=== PATIENT | female | born 1935 | race African-American/Black ===

== ENCOUNTER 2018-07-22 13:07 | Emergency (ER) | payer OTHER ==
[2018-07-22 13:16] VITALS: BP 154/70; PULSE 62; TEMP 98.9; BMI 25.7
--- NOTE | 2018-07-22 14:15 | PDOC ---
History of Present Illness - General Chief Complaint: Injury Stated Complaint: FALL, RT SHOULDER PAIN Time Seen by Provider: 07/22/18 13:28 History Source: Patient Exam Limitations: No Limitations - History of Present Illness Initial Comments: 07/22/18 14:00 82-year-old female presents the emergency room with complaints of right shoulder and right side of her head aching pain for the past 3 days. Patient states was trying to change a light pole when she fell off of the chair landing on her right side. Patient states had no loss of consciousness visual changes nausea, weakness and fall. Patient states took one Aleve with good effect but since pain continues patient decided come to the ER. Patient states is on no anticoagulation therapy. Occurred: reports: yesterday Severity: reports: moderate Pain Location: reports: head, upper extremity Method of Injury: Yes: direct blow, fall Modifying Factors: improves with: None Loss of Consciousness: no loss of consciousness Associated Symptoms (Fall): denies symptoms Past History - Travel Traveled outside of the country in the last 30 days: No Close contact w/someone who was outside of country & ill: No - Past Medical History Allergies/Adverse Reactions: Allergies Allergy/AdvReac Type Severity Reaction Status Date / Time No Known Allergies Allergy Verified 07/22/18 13:15 Home Medications: Ambulatory Orders Amlodipine Besylate [Norvasc -] 10 mg PO DAILY 05/09/14 Atorvastatin Ca [Lipitor -] 40 mg PO HS 05/09/14 Calcium Carbonate [Calcium] 500 mg PO BID 05/09/14 Colchicine [Colcrys -] 0.6 mg PO ASDIR 05/09/14 Labetalol HCl [Normodyne -] 300 mg PO BID 05/09/14 Mv,Calcium,Min/Iron/Folic/Vitk [Essential Woman Tablet] 1 each PO DAILY Pioglitazone HCl [Actos -] 45 mg PO DAILY 05/09/14 metFORMIN HCL [Glucophage -] 850 mg PO BID 05/09/14 Ibuprofen [Motrin] 600 mg PO TID #20 tablet 05/10/14 COPD: No Diabetes: Yes (NIDDM) HTN: Yes Hypercholesterolemia: Yes - Suicide/Smoking/Psychosocial Hx Smoking History: Never smoked Substance Use Type: None Patient Lives Alone: Yes Lives with/in: lives alone Review of Systems - Review of Systems Able to Perform ROS?: Yes Constitutional: No: Symptoms Reported HEENTM: No: Blurred Vision Musculoskeletal: Yes: Joint Pain (right shoulder), Neck Pain (right sided). No : Back Pain Integumentary: No: Symptoms Reported Neurological: No: Headache, Numbness, Weakness, Dizziness Hematologic/Lymphatic: No: Symptoms Reported *Physical Exam - Vital Signs Last Vital Signs Temp Pulse Resp BP Pulse Ox 98.9 F 62 18 154/70 98 07/22/18 13:13 07/22/18 13:13 07/22/18 13:13 07/22/18 13:13 07/22/18 13:13 - Physical Exam General Appearance: Yes: Nourished, Appropriately Dressed. No: Apparent Distress HEENT: positive: EOMI, NANCY Neck: positive: Supple, Decreased range of motion (right rotation), Tender lateral (right trapezius) Respiratory/Chest: positive: Chest Tender, Lungs Clear, Normal Breath Sounds. negative: Respiratory Distress, Accessory Muscle Use Cardiovascular: positive: Regular Rhythm, Regular Rate. negative: Murmur Gastrointestinal/Abdominal: positive: Soft. negative: Tenderness Musculoskeletal: negative: CVA Tenderness, Vertebral Tenderness Extremity: positive: Normal Capillary Refill, Normal Inspection, Tender (right before joint). negative: Normal Range of Motion (unable to perform right arm lateral raise) Integumentary: positive: Normal Color, Warm, Moist. negative: Swelling, Ecchymosis Neurologic: positive: Motor Strength 5/5 (ambulatory) ED Treatment Course - RADIOLOGY Radiology Studies Ordered: Category Date Time Status HEAD CT WITHOUT CONTRAST [CT] Stat CT Scan 07/22/18 13:44 Ordered SHOULDER-RIGHT [RAD] Stat Radiology 07/22/18 13:44 Ordered Medical Decision Making - Medical Decision Making 07/22/18 14:15 CC: fall with rt shoulder pain and right sided head achiness Exam: rt shoulder tenderness and rt trapizius tenderness Plan: head ct and shoulder xray 07/22/18 14:29 X-ray negative for acute findings. Head CT shows no acute bleed or mass, or fracture. No CT evidence of acute infarct. Patient will be discharged home with recommendations to take Tylenol Motrin for discomfort apply ice and rest. *DC/Admit/Observation/Transfer Diagnosis at time of Disposition: Shoulder contusion, Closed head injury - Discharge Dispostion Disposition: HOME Condition at time of disposition: Good - Referrals Referrals: Oriana Webb MD [Primary Care Provider] - - Patient Instructions Printed Discharge Instructions: DI for Closed Head Injury, DI for Shoulder Sprain Additional Instructions: Please take motrin or tylenol for pain as needed. Apply ice to the affected areas for the next 3 days as much as you can tolerate. Rest - Post Discharge Activity
== END 2018-07-22 14:37 | disposition home or self-care (01) ==
LOC: JERFT 13:07
DX: S09.8XXA Other specified injuries of head, initial encounter (principal); S40.011A Contusion of right shoulder, initial encounter; W07.XXXA Fall from chair, initial encounter; Y93.E9 Activity, other interior property and clothing maintenance; Y92.038 Other place in apartment as the place of occurrence of the external cause; Y99.8 Other external cause status; I10 Essential (primary) hypertension; E78.00 Pure hypercholesterolemia, unspecified; E11.9 Type 2 diabetes mellitus without complications; Z79.84 Long term (current) use of oral hypoglycemic drugs
CPT/HCPCS: 70450-TC; 73030-TC-RT-FY; 99281-25

== ENCOUNTER 2022-07-10 15:47 | Inpatient (IN) | payer OTHER ==
[2022-07-10] MEDS ORDERED: TRIMETHOBENZAMIDE HCL 200MG/2ML INJ IM ONE ×2 (16:33→16:55)
[2022-07-10 17:29] LABS: BASO % 0.5 % (0-2.0); EOS % 0.9 % (0-4.5); HEMATOCRIT 28.3 % (32.4-45.2); HEMOGLOBIN 9.2 GM/dL (10.7-15.3); LYMPH % 18.4 % (8-40); MCH 29.6 pg (25.7-33.7); MCHC 32.6 g/dl (32.0-36.0); MEAN CELL VOLUME 90.7 fl (80-96); MEAN PLT VOLUME 9.9 fl (7.5-11.1); MONO % 9.7 % (3.8-10.2); NEUT % 70.5 % (42.8-82.8); PLATELET COUNT 99 10^3/uL (134-434); RBC 3.12 M/mm3 (3.60-5.2); RDW 16.6 % (11.6-15.6); WHITE BLOOD COUNT 6.1 K/mm3 (4.0-10.0)
[2022-07-10 17:37] LABS: INR 1.08 (0.83-1.09); PROTHROMBIN TIME (PATIENT) 12.4 SEC (9.7-13.0)
[2022-07-10 17:39] LABS: ACTIVATED PTT 52.3 SECONDS (25.2-36.5)
[2022-07-10 17:47] LABS: CHLORIDE 105 mmol/L (98-107); SODIUM 133 mmol/L (136-145)
[2022-07-10 17:48] LABS: CALCIUM 8.4 mg/dL (8.5-10.1)
[2022-07-10 17:49] LABS: ALBUMIN 3.2 g/dl (3.4-5.0); CO2 17 mmol/L (21-32); GLUCOSE,RANDOM 203 mg/dL (74-106); MAGNESIUM 1.5 mg/dL (1.8-2.4)
[2022-07-10 17:52] LABS: CREATININE 3.3 mg/dL (0.55-1.3); SGOT/AST 88 U/L (15-37); SGPT/ALT 120 U/L (13-61)
[2022-07-10 17:54] LABS: BILIRUBIN,TOTAL 0.5 mg/dL (0.2-1); TOT PROT 6.7 g/dl (6.4-8.2)
[2022-07-10 17:55] LABS: ALK PHOS 60 U/L (45-117)
[2022-07-10 18:04] LABS: ANION GAP 11 MMOL/L (8-16)
[2022-07-10] MEDS ORDERED: CALCIUM GLUCONATE 10% - 1,000 MG/10 ML VIAL IVPB ONE (18:05)
[2022-07-10] MEDS ORDERED: SODIUM CHLORIDE 0.9% 500 ML INFUS.BAG IV ONE (18:08)
[2022-07-10] MEDS ORDERED: CALCIUM GLUCONATE 10% - 1,000 MG/10 ML VIAL ONE (18:32)
[2022-07-10] MEDS ORDERED: MAGNESIUM SULF 50% (8.12 MEQ/2 ML-1 GM VIAL) IVPB ONE (19:07)
[2022-07-10 19:25] LABS: VENOUS BASE EXCESS -8.3 mmol/L (-2-2); VENOUS O2 SATURATION 44.9 % (70-80); VENOUS PH 7.257 (7.310-7.410)
[2022-07-10 19:26] LABS: CHLORIDE 105 mmol/L (98-107); SODIUM 134 mmol/L (136-145)
[2022-07-10 19:28] LABS: BLOOD UREA NITROGEN 52.7 mg/dL (7-18); CALCIUM 8.6 mg/dL (8.5-10.1); CO2 19 mmol/L (21-32); GLUCOSE,RANDOM 177 mg/dL (74-106)
[2022-07-10] MEDS ORDERED: SODIUM BICARBONATE 8.4% 50 MEQ/50 ML DISP.SYRIN IVPUSH ONE (19:28)
[2022-07-10] MEDS ORDERED: SODIUM BICARBONATE 8.4% - 50 ML ONE (19:30)
[2022-07-10] MEDS ORDERED: MAGNESIUM SULFATE IN WATER 2 GM/50 ML IVPB IVPB ONE (19:30)
[2022-07-10] MEDS ORDERED: ALBUTEROL SO4 0.083% IH SOL 2.5 MG/3 ML VIAL.NEB. NEB ONE ×5 (19:30→19:47)
[2022-07-10 19:31] LABS: CREATININE 3.4 mg/dL (0.55-1.3)
[2022-07-10 19:32] LABS: ANION GAP 10 MMOL/L (8-16)
[2022-07-10] MEDS ORDERED: INSULIN REGULAR HUMAN 100 UNITS/ML *VIAL IVPUSH ONE (19:44)
[2022-07-10] MEDS ORDERED: DEXTROSE 50%-WATER - 25 GM/50 ML VIAL IVPUSH ONE (19:45)
[2022-07-10] MEDS ORDERED: ONDANSETRON 4 MG/2 ML VIAL ONE (19:52)
[2022-07-10] MEDS ORDERED: DEXTROSE 50%-WATER 25 GM/50 ML DISP.SYRIN ONE (20:07)
[2022-07-10] MEDS ORDERED: ATROPINE SULFATE 1 MG/10 ML DISP.SYRIN ONE (20:13)
[2022-07-10] MEDS ORDERED: FUROSEMIDE 40 MG/4 ML INJECTABLE VIAL IVPUSH ONE (22:13)
[2022-07-10] MEDS ORDERED: FUROSEMIDE 40 MG/4 ML INJECTABLE VIAL ONE (22:31)
[2022-07-10] MEDS ORDERED: SODIUM ZIRCONIUM CYCLOSILICATE (LOKELMA) 5 GM PACKET PO STA (23:12)
[2022-07-11 07:39] LABS: BASO % 0.6 % (0-2.0); EOS % 1.4 % (0-4.5); HEMATOCRIT 30.3 % (32.4-45.2); LYMPH % 19.6 % (8-40); MCH 29.5 pg (25.7-33.7); MCHC 32.9 g/dl (32.0-36.0); MEAN CELL VOLUME 89.7 fl (80-96); MEAN PLT VOLUME 10.1 fl (7.5-11.1); NEUT % 67.4 % (42.8-82.8); PLATELET COUNT 108 10^3/uL (134-434); RBC 3.38 M/mm3 (3.60-5.2); RDW 16.7 % (11.6-15.6); WHITE BLOOD COUNT 5.9 K/mm3 (4.0-10.0)
[2022-07-11 07:44] LABS: BLOOD UREA NITROGEN 45.7 mg/dL (7-18); CALCIUM 8.8 mg/dL (8.5-10.1)
[2022-07-11 07:47] LABS: CREATININE 2.8 mg/dL (0.55-1.3)
[2022-07-11] MEDS: MUPIROCIN 2% TOPICAL OINTMENT FOR DECOLONIZATION NS SCH ×2 (10:04→21:34)
[2022-07-11] MEDS: amLODIPine BESYLATE 10 MG TABLET (FP) PO SCH (14:10)
[2022-07-11] MEDS: CHLORHEXIDINE GLUCONATE 4% CLEANSER FOR DECOLONIZATION TP SCH (21:34)
[2022-07-11] MEDS: LABETALOL HCL 100 MG TABLET (FP) PO SCH (21:35)
[2022-07-11] MEDS: ATORVASTATIN CA 40 MG TABLET (FP) PO SCH (21:35)
[2022-07-12] MEDS: PIOGLITAZONE HCL 15 MG TABLET PO SCH (06:54)
[2022-07-12 07:33] LABS: HEMATOCRIT 28.5 % (32.4-45.2); HEMOGLOBIN 9.4 GM/dL (10.7-15.3); MCH 29.7 pg (25.7-33.7); MCHC 32.9 g/dl (32.0-36.0); MEAN CELL VOLUME 90.2 fl (80-96); MEAN PLT VOLUME 9.7 fl (7.5-11.1); PLATELET COUNT 101 10^3/uL (134-434); RBC 3.16 M/mm3 (3.60-5.2); RDW 16.4 % (11.6-15.6); WHITE BLOOD COUNT 5.1 K/mm3 (4.0-10.0)
[2022-07-12 07:58] LABS: BLOOD UREA NITROGEN 46.7 mg/dL (7-18); MAGNESIUM 1.9 mg/dL (1.8-2.4)
[2022-07-12 08:01] LABS: CREATININE 2.3 mg/dL (0.55-1.3); PHOSPHOROUS 3.8 mg/dL (2.5-4.9)
[2022-07-12] MEDS ORDERED: SODIUM ZIRCONIUM CYCLOSILICATE (LOKELMA) 5 GM PACKET PO SCH (10:00)
[2022-07-12] MEDS: LABETALOL HCL 100 MG TABLET (FP) PO SCH (11:02)
[2022-07-12] MEDS: amLODIPine BESYLATE 10 MG TABLET (FP) PO SCH (11:03)
[2022-07-12] MEDS: MUPIROCIN 2% TOPICAL OINTMENT FOR DECOLONIZATION NS SCH ×2 (11:03→21:03)
[2022-07-12 13:18] LABS: LACTIC ACID 2.1 mmol/L (0.4-2.0)
[2022-07-12] MEDS ORDERED: hydrALAZINE HCL 20 MG/ML VIAL IVPUSH PRN (13:20)
[2022-07-12] MEDS ORDERED: hydrALAZINE HCL 25 MG TABLET (FP) PO SCH (13:30)
[2022-07-12] MEDS: SODIUM CHLORIDE 0.45% 1,000 ML IV SCH (14:00)
[2022-07-12] MEDS ORDERED: CALCIUM GLUCONATE 10% - 1,000 MG/10 ML VIAL IVPUSH ONE (14:03)
[2022-07-12] MEDS ORDERED: ALBUTEROL SO4 HFA INHALER IH ONE (14:03)
[2022-07-12] MEDS ORDERED: DEXTROSE 50%-WATER - 25 GM/50 ML VIAL IVPUSH ONE (14:04)
[2022-07-12] MEDS ORDERED: INSULIN REGULAR HUMAN 100 UNITS/ML *VIAL ONE (14:06)
[2022-07-12] MEDS ORDERED: SODIUM BICARBONATE 8.4% 50 MEQ/50 ML VIAL IVPUSH ONE (14:08)
[2022-07-12] MEDS ORDERED: DEXTROSE 50%-WATER 25 GM/50 ML DISP.SYRIN ONE (14:11)
[2022-07-12] MEDS: SODIUM ZIRCONIUM CYCLOSILICATE (LOKELMA) 5 GM PACKET PO SCH ×2 (14:20→21:03)
[2022-07-12] MEDS ORDERED: INSULIN REGULAR HUMAN 100 UNITS/ML *VIAL IVPUSH ONE (14:30)
[2022-07-12] MEDS ORDERED: SODIUM BICARBONATE 8.4% - 50 ML ONE (14:40)
[2022-07-12 15:12] LABS: CALCIUM 8.1 mg/dL (8.5-10.1)
[2022-07-12 15:13] LABS: ALBUMIN 3.1 g/dl (3.4-5.0); BLOOD UREA NITROGEN 40.1 mg/dL (7-18)
[2022-07-12] MEDS ORDERED: LACTULOSE 20 GM/30 ML UDC (FOR ORAL USE ONLY) PO ONE (15:14)
[2022-07-12 15:16] LABS: CREATININE 2.3 mg/dL (0.55-1.3)
[2022-07-12 15:18] LABS: BILIRUBIN,TOTAL 0.5 mg/dL (0.2-1); TOT PROT 6.7 g/dl (6.4-8.2)
[2022-07-12] MEDS: ATORVASTATIN CA 40 MG TABLET (FP) PO SCH (21:03)
[2022-07-12] MEDS: HEPARIN NA (PORCINE) 5,000 UNITS/ML 1ML VIAL SQ SCH (21:03)
[2022-07-12] MEDS: CHLORHEXIDINE GLUCONATE 4% CLEANSER FOR DECOLONIZATION TP SCH (21:03)
[2022-07-13] MEDS: PIOGLITAZONE HCL 15 MG TABLET PO SCH (06:38)
[2022-07-13] MEDS: SODIUM CHLORIDE 0.45% 1,000 ML IV SCH ×2 (07:00→19:15)
[2022-07-13 07:30] LABS: HEMATOCRIT 32.9 % (32.4-45.2); HEMOGLOBIN 10.8 GM/dL (10.7-15.3); MCH 29.6 pg (25.7-33.7); MCHC 32.8 g/dl (32.0-36.0); MEAN CELL VOLUME 90.4 fl (80-96); MEAN PLT VOLUME 10.1 fl (7.5-11.1); PLATELET COUNT 105 10^3/uL (134-434); RBC 3.63 M/mm3 (3.60-5.2); RDW 16.8 % (11.6-15.6); WHITE BLOOD COUNT 6.4 K/mm3 (4.0-10.0)
[2022-07-13 07:37] LABS: ALBUMIN 3.3 g/dl (3.4-5.0); BLOOD UREA NITROGEN 30.8 mg/dL (7-18); MAGNESIUM 1.5 mg/dL (1.8-2.4)
[2022-07-13 07:40] LABS: CREATININE 1.8 mg/dL (0.55-1.3); PHOSPHOROUS 3.4 mg/dL (2.5-4.9)
[2022-07-13 07:41] LABS: BILIRUBIN,TOTAL 0.5 mg/dL (0.2-1)
[2022-07-13 07:42] LABS: TOT PROT 7.1 g/dl (6.4-8.2)
[2022-07-13] MEDS: HEPARIN NA (PORCINE) 5,000 UNITS/ML 1ML VIAL SQ SCH ×2 (09:27→22:35)
[2022-07-13] MEDS: SODIUM ZIRCONIUM CYCLOSILICATE (LOKELMA) 5 GM PACKET PO SCH ×2 (09:27→22:36)
[2022-07-13] MEDS: amLODIPine BESYLATE 10 MG TABLET (FP) PO SCH (09:27)
[2022-07-13] MEDS: MUPIROCIN 2% TOPICAL OINTMENT FOR DECOLONIZATION NS SCH ×2 (09:28→22:35)
[2022-07-13] MEDS: hydrALAZINE HCL 25 MG TABLET (FP) PO SCH ×2 (11:47→13:40)
[2022-07-13] MEDS ORDERED: hydrALAZINE HCL 25 MG TABLET (FP) PO ONE (14:48)
[2022-07-13] MEDS: hydrALAZINE HCL 50 MG TABLET (FP) PO SCH ×2 (17:18→22:35)
[2022-07-13] MEDS: ACETAMINOPHEN 500 MG TABLET (FP) PO PRN (18:40)
[2022-07-13] MEDS: CHLORHEXIDINE GLUCONATE 4% CLEANSER FOR DECOLONIZATION TP SCH (22:35)
[2022-07-13] MEDS: ATORVASTATIN CA 40 MG TABLET (FP) PO SCH (22:36)
[2022-07-14] MEDS: PIOGLITAZONE HCL 15 MG TABLET PO SCH (06:11)
[2022-07-14] MEDS: hydrALAZINE HCL 50 MG TABLET (FP) PO SCH (06:11)
[2022-07-14] MEDS: HEPARIN NA (PORCINE) 5,000 UNITS/ML 1ML VIAL SQ SCH ×3 (06:11→21:54)
[2022-07-14 06:59] LABS: BASO % 1.1 % (0-2.0); EOS % 0.9 % (0-4.5); HEMATOCRIT 31.9 % (32.4-45.2); HEMOGLOBIN 10.5 GM/dL (10.7-15.3); LYMPH % 14.9 % (8-40); MCH 29.3 pg (25.7-33.7); MCHC 32.7 g/dl (32.0-36.0); MEAN CELL VOLUME 89.5 fl (80-96); MEAN PLT VOLUME 9.6 fl (7.5-11.1); MONO % 11.4 % (3.8-10.2); NEUT % 71.7 % (42.8-82.8); PLATELET COUNT 129 10^3/uL (134-434); RBC 3.57 M/mm3 (3.60-5.2); WHITE BLOOD COUNT 6.6 K/mm3 (4.0-10.0)
[2022-07-14 07:30] LABS: CALCIUM 8.3 mg/dL (8.5-10.1)
[2022-07-14 07:31] LABS: BLOOD UREA NITROGEN 22.8 mg/dL (7-18); MAGNESIUM 1.5 mg/dL (1.8-2.4)
[2022-07-14 07:34] LABS: CREATININE 1.5 mg/dL (0.55-1.3); PHOSPHOROUS 3.1 mg/dL (2.5-4.9)
[2022-07-14 07:35] LABS: TOT PROT 6.8 g/dl (6.4-8.2)
[2022-07-14 07:36] LABS: BILIRUBIN,TOTAL 0.6 mg/dL (0.2-1)
[2022-07-14] MEDS ORDERED: MAGNESIUM SULF 50% (8.12 MEQ/2 ML-1 GM VIAL) IVPB ONE (07:55)
[2022-07-14] MEDS: ACETAMINOPHEN 500 MG TABLET (FP) PO PRN ×2 (09:27→21:54)
[2022-07-14] MEDS: MUPIROCIN 2% TOPICAL OINTMENT FOR DECOLONIZATION NS SCH ×2 (09:28→21:53)
[2022-07-14] MEDS ORDERED: amLODIPine BESYLATE 10 MG TABLET (FP) PO SCH (10:00)
[2022-07-14] MEDS ORDERED: PIPERACILLIN/TAZOB 3.375 GM 3.375 GM in DEXTROSE 5%-WATER - 50 ML IVPB SCH ×2 (10:15→10:30)
[2022-07-14] MEDS: SODIUM CHLORIDE 0.45% 1,000 ML IV SCH (10:19)
[2022-07-14] MEDS ORDERED: COLCHICINE 0.6 MG CAP PO ONE (14:40)
[2022-07-14] MEDS: LOSARTAN POTASSIUM 25 MG TABLET PO SCH (15:29)
[2022-07-14] MEDS: INSULIN SLIDING SCALE (NOVOLOG) 1 VIAL SQ SCH ×2 (16:57→21:54)
[2022-07-14] MEDS: ALLOPURINOL 100 MG TABLET (FP) PO SCH (16:57)
[2022-07-14] MEDS: CHLORHEXIDINE GLUCONATE 4% CLEANSER FOR DECOLONIZATION TP SCH (21:54)
[2022-07-14] MEDS: ATORVASTATIN CA 40 MG TABLET (FP) PO SCH (21:54)
[2022-07-14] MEDS ORDERED: LABETALOL HCL 100 MG TABLET (FP) PO SCH (22:00)
[2022-07-15 07:29] LABS: BASO % 0.6 % (0-2.0); EOS % 0.7 % (0-4.5); HEMATOCRIT 29.9 % (32.4-45.2); HEMOGLOBIN 9.8 GM/dL (10.7-15.3); LYMPH % 16.7 % (8-40); MCH 29.2 pg (25.7-33.7); MCHC 32.8 g/dl (32.0-36.0); MEAN CELL VOLUME 88.9 fl (80-96); MEAN PLT VOLUME 10.2 fl (7.5-11.1); MONO % 15.6 % (3.8-10.2); NEUT % 66.4 % (42.8-82.8); PLATELET COUNT 124 10^3/uL (134-434); RBC 3.37 M/mm3 (3.60-5.2); RDW 15.9 % (11.6-15.6); WHITE BLOOD COUNT 7.1 K/mm3 (4.0-10.0)
[2022-07-15 07:59] LABS: ALBUMIN 2.8 g/dl (3.4-5.0); BLOOD UREA NITROGEN 28.4 mg/dL (7-18); CALCIUM 8.3 mg/dL (8.5-10.1)
[2022-07-15 08:01] LABS: CREATININE 1.8 mg/dL (0.55-1.3); PHOSPHOROUS 3.7 mg/dL (2.5-4.9)
[2022-07-15 08:03] LABS: BILIRUBIN,TOTAL 0.7 mg/dL (0.2-1); TOT PROT 6.4 g/dl (6.4-8.2)
[2022-07-15] MEDS: PIOGLITAZONE HCL 15 MG TABLET PO SCH (08:16)
[2022-07-15] MEDS: INSULIN SLIDING SCALE (NOVOLOG) 1 VIAL SQ SCH ×4 (08:16→21:19)
[2022-07-15] MEDS: HEPARIN NA (PORCINE) 5,000 UNITS/ML 1ML VIAL SQ SCH ×3 (08:16→21:13)
[2022-07-15] MEDS: MUPIROCIN 2% TOPICAL OINTMENT FOR DECOLONIZATION NS SCH ×2 (10:20→21:14)
[2022-07-15] MEDS: NIFEdipine E.R 60 MG TABLET PO SCH (10:23)
[2022-07-15] MEDS: LOSARTAN POTASSIUM 25 MG TABLET PO SCH (10:23)
[2022-07-15] MEDS: ALLOPURINOL 100 MG TABLET (FP) PO SCH (10:23)
[2022-07-15] MEDS: SODIUM CHLORIDE 0.45% 1,000 ML IV SCH ×2 (10:24→21:12)
[2022-07-15] MEDS: ACETAMINOPHEN 500 MG TABLET (FP) PO PRN ×2 (10:46→21:18)
[2022-07-15 16:01] VITALS: BMI 28.1
[2022-07-15] MEDS: ATORVASTATIN CA 40 MG TABLET (FP) PO SCH (21:13)
[2022-07-15] MEDS: CHLORHEXIDINE GLUCONATE 4% CLEANSER FOR DECOLONIZATION TP SCH (21:14)
[2022-07-16] MEDS: HEPARIN NA (PORCINE) 5,000 UNITS/ML 1ML VIAL SQ SCH ×3 (05:40→22:27)
[2022-07-16] MEDS: INSULIN SLIDING SCALE (NOVOLOG) 1 VIAL SQ SCH ×4 (06:14→22:27)
[2022-07-16] MEDS: PIOGLITAZONE HCL 15 MG TABLET PO SCH (06:14)
[2022-07-16 07:54] LABS: BASO % 0.5 % (0-2.0); EOS % 1.6 % (0-4.5); HEMATOCRIT 28.6 % (32.4-45.2); HEMOGLOBIN 9.4 GM/dL (10.7-15.3); MCH 29.2 pg (25.7-33.7); MCHC 32.9 g/dl (32.0-36.0); MEAN CELL VOLUME 88.7 fl (80-96); MEAN PLT VOLUME 10.1 fl (7.5-11.1); MONO % 13.6 % (3.8-10.2); NEUT % 61.3 % (42.8-82.8); PLATELET COUNT 142 10^3/uL (134-434); RBC 3.22 M/mm3 (3.60-5.2); RDW 15.5 % (11.6-15.6); WHITE BLOOD COUNT 6.4 K/mm3 (4.0-10.0)
[2022-07-16 08:24] LABS: ALBUMIN 2.6 g/dl (3.4-5.0)
[2022-07-16 08:25] LABS: BLOOD UREA NITROGEN 35.9 mg/dL (7-18); MAGNESIUM 2.2 mg/dL (1.8-2.4)
[2022-07-16 08:28] LABS: BILIRUBIN,TOTAL 0.5 mg/dL (0.2-1); CREATININE 1.9 mg/dL (0.55-1.3); PHOSPHOROUS 3.6 mg/dL (2.5-4.9); TOT PROT 6.3 g/dl (6.4-8.2)
[2022-07-16] MEDS: ACETAMINOPHEN 500 MG TABLET (FP) PO PRN ×2 (09:46→22:28)
[2022-07-16] MEDS: ALLOPURINOL 100 MG TABLET (FP) PO SCH (09:47)
[2022-07-16] MEDS: NIFEdipine E.R 60 MG TABLET PO SCH (09:47)
[2022-07-16] MEDS: predniSONE 20 MG TABLET (UD) PO SCH (15:08)
[2022-07-16] MEDS: ATORVASTATIN CA 40 MG TABLET (FP) PO SCH (22:27)
[2022-07-16] MEDS: CHLORHEXIDINE GLUCONATE 4% CLEANSER FOR DECOLONIZATION TP SCH (22:27)
[2022-07-16] MEDS: SODIUM CHLORIDE 0.45% 1,000 ML IV SCH (23:53)
[2022-07-17] MEDS: HEPARIN NA (PORCINE) 5,000 UNITS/ML 1ML VIAL SQ SCH ×3 (05:31→21:06)
[2022-07-17] MEDS: PIOGLITAZONE HCL 15 MG TABLET PO SCH (06:20)
[2022-07-17] MEDS: INSULIN SLIDING SCALE (NOVOLOG) 1 VIAL SQ SCH ×4 (06:30→21:07)
[2022-07-17 07:04] LABS: BASO % 1.6 % (0-2.0); HEMATOCRIT 29.7 % (32.4-45.2); HEMOGLOBIN 9.6 GM/dL (10.7-15.3); LYMPH % 9.1 % (8-40); MCH 28.7 pg (25.7-33.7); MCHC 32.2 g/dl (32.0-36.0); MEAN CELL VOLUME 89.3 fl (80-96); MEAN PLT VOLUME 9.7 fl (7.5-11.1); MONO % 7.6 % (3.8-10.2); NEUT % 81.7 % (42.8-82.8); PLATELET COUNT 179 10^3/uL (134-434); RBC 3.33 M/mm3 (3.60-5.2); RDW 15.6 % (11.6-15.6); WHITE BLOOD COUNT 7.4 K/mm3 (4.0-10.0)
[2022-07-17 07:22] LABS: ALBUMIN 2.7 g/dl (3.4-5.0); CALCIUM 8.7 mg/dL (8.5-10.1)
[2022-07-17 07:23] LABS: MAGNESIUM 2.1 mg/dL (1.8-2.4)
[2022-07-17 07:26] LABS: CREATININE 1.9 mg/dL (0.55-1.3); PHOSPHOROUS 3.1 mg/dL (2.5-4.9)
[2022-07-17 07:27] LABS: BILIRUBIN,TOTAL 0.3 mg/dL (0.2-1); TOT PROT 6.9 g/dl (6.4-8.2)
[2022-07-17] MEDS: predniSONE 20 MG TABLET (UD) PO SCH (09:13)
[2022-07-17] MEDS: ALLOPURINOL 100 MG TABLET (FP) PO SCH (09:13)
[2022-07-17] MEDS: NIFEdipine E.R 60 MG TABLET PO SCH (09:13)
[2022-07-17] MEDS ORDERED: LOSARTAN POTASSIUM 50 MG TABLET PO SCH (11:30)
[2022-07-17] MEDS: CHLORHEXIDINE GLUCONATE 4% CLEANSER FOR DECOLONIZATION TP SCH (21:06)
[2022-07-17] MEDS: ATORVASTATIN CA 40 MG TABLET (FP) PO SCH (21:06)
[2022-07-18] MEDS ORDERED: ACETAMINOPHEN 500 MG TABLET (FP) PO PRN (03:39)
[2022-07-18] MEDS: HEPARIN NA (PORCINE) 5,000 UNITS/ML 1ML VIAL SQ SCH ×3 (05:24→21:44)
[2022-07-18] MEDS: INSULIN SLIDING SCALE (NOVOLOG) 1 VIAL SQ SCH ×4 (06:01→21:44)
[2022-07-18] MEDS: PIOGLITAZONE PO SCH (06:56)
[2022-07-18] MEDS ORDERED: PIOGLITAZONE HCL 15 MG TABLET PO SCH (07:00)
[2022-07-18 10:47] LABS: BASO % 1.6 % (0-2.0); EOS % 1.1 % (0-4.5); HEMATOCRIT 28.4 % (32.4-45.2); HEMOGLOBIN 9.3 GM/dL (10.7-15.3); LYMPH % 17.6 % (8-40); MCH 29.1 pg (25.7-33.7); MCHC 32.9 g/dl (32.0-36.0); MEAN CELL VOLUME 88.5 fl (80-96); MEAN PLT VOLUME 9.4 fl (7.5-11.1); MONO % 9.8 % (3.8-10.2); NEUT % 69.9 % (42.8-82.8); PLATELET COUNT 223 10^3/uL (134-434); RBC 3.21 M/mm3 (3.60-5.2); RDW 15.4 % (11.6-15.6); WHITE BLOOD COUNT 8.5 K/mm3 (4.0-10.0)
[2022-07-18] MEDS: predniSONE 20 MG TABLET (UD) PO SCH (11:00)
[2022-07-18] MEDS: ALLOPURINOL 100 MG TABLET (FP) PO SCH (11:00)
[2022-07-18] MEDS: NIFEdipine E.R 60 MG TABLET PO SCH (11:01)
[2022-07-18] MEDS: LOSARTAN POTASSIUM 25 MG TABLET PO SCH (11:01)
[2022-07-18 11:19] LABS: ALBUMIN 2.7 g/dl (3.4-5.0); CALCIUM 8.5 mg/dL (8.5-10.1)
[2022-07-18 11:20] LABS: BLOOD UREA NITROGEN 38.2 mg/dL (7-18)
[2022-07-18 11:22] LABS: CREATININE 1.9 mg/dL (0.55-1.3)
[2022-07-18 11:23] LABS: BILIRUBIN,TOTAL 0.3 mg/dL (0.2-1); PHOSPHOROUS 2.4 mg/dL (2.5-4.9)
[2022-07-18 11:24] LABS: TOT PROT 6.8 g/dl (6.4-8.2)
[2022-07-18] MEDS ORDERED: ATORVASTATIN CA 40 MG TABLET (FP) PO SCH (22:00)
[2022-07-18] MEDS ORDERED: CHLORHEXIDINE GLUCONATE 4% CLEANSER FOR DECOLONIZATION TP SCH (22:00)
[2022-07-18 23:05] VITALS: RESP 18
[2022-07-19] MEDS: HEPARIN NA (PORCINE) 5,000 UNITS/ML 1ML VIAL SQ SCH ×2 (06:50→14:02)
[2022-07-19] MEDS: INSULIN SLIDING SCALE (NOVOLOG) 1 VIAL SQ SCH ×2 (06:50→11:59)
[2022-07-19] MEDS: NIFEdipine E.R 60 MG TABLET PO SCH (09:56)
[2022-07-19] MEDS: LOSARTAN POTASSIUM 25 MG TABLET PO SCH (09:56)
[2022-07-19] MEDS: predniSONE 20 MG TABLET (UD) PO SCH (09:56)
[2022-07-19] MEDS: PIOGLITAZONE PO SCH (09:57)
[2022-07-19] MEDS: ALLOPURINOL 100 MG TABLET (FP) PO SCH (09:57)
[2022-07-19 11:56] LABS: BASO % 1.4 % (0-2.0); EOS % 1.2 % (0-4.5); HEMATOCRIT 29.2 % (32.4-45.2); HEMOGLOBIN 9.5 GM/dL (10.7-15.3); LYMPH % 19.3 % (8-40); MCHC 32.4 g/dl (32.0-36.0); MEAN CELL VOLUME 89.3 fl (80-96); MEAN PLT VOLUME 9.3 fl (7.5-11.1); MONO % 11.6 % (3.8-10.2); NEUT % 66.5 % (42.8-82.8); PLATELET COUNT 247 10^3/uL (134-434); RBC 3.26 M/mm3 (3.60-5.2); RDW 15.7 % (11.6-15.6); WHITE BLOOD COUNT 7.7 K/mm3 (4.0-10.0)
[2022-07-19 12:10] VITALS: BP 148/67; PULSE 73; TEMP 98.4
[2022-07-19 12:15] LABS: CALCIUM 8.6 mg/dL (8.5-10.1)
[2022-07-19 12:16] LABS: ALBUMIN 2.6 g/dl (3.4-5.0); BLOOD UREA NITROGEN 39.9 mg/dL (7-18); MAGNESIUM 1.6 mg/dL (1.8-2.4)
[2022-07-19 12:19] LABS: CREATININE 1.7 mg/dL (0.55-1.3); PHOSPHOROUS 2.7 mg/dL (2.5-4.9)
[2022-07-19 12:20] LABS: BILIRUBIN,TOTAL 0.2 mg/dL (0.2-1); TOT PROT 6.6 g/dl (6.4-8.2)
== END 2022-07-19 15:54 | disposition home or self-care (01) | DRG 683 ==
LOC: JER 15:47 → JERBED 18:21 → JICU 07-11 00:14 → J2W 07-14 05:51 → J5S 07-18 04:41
PROVIDERS: ADMIT Internal Medicine Pulmonary Disease; ATTEND Internal Medicine
DX: N17.9 Acute kidney failure, unspecified (principal); E87.1 Hypo-osmolality and hyponatremia; Q61.3 Polycystic kidney, unspecified; E87.5 Hyperkalemia; R00.1 Bradycardia, unspecified; E78.5 Hyperlipidemia, unspecified; E11.9 Type 2 diabetes mellitus without complications; I13.10 Hypertensive heart and chronic kidney disease without heart failure, with stage 1 through stage 4 chronic kidney disease, or unspecified chronic kidney disease; N18.32 Chronic kidney disease, stage 3b; M10.9 Gout, unspecified; E86.0 Dehydration; D69.6 Thrombocytopenia, unspecified
CPT/HCPCS: 0241U-QW; 36415; 71045-TC-FY; 76775-TC; 80048; 80053; 82550; 82553; 82570; 82803; 82962; 83605; 83735; 84100; 84132; 84300; 84439; 84443; 84484; 85025; 85027; 85610; 85651; 85730; 86140; 87040; 93005; 93010; 93306-TC; 94010; 97116-GP; 97161-GP; 99291; J1644

== ENCOUNTER 2023-01-28 10:35 | Emergency (ER) | payer OTHER ==
[2023-01-28 10:46] VITALS: BP 161/61; PULSE 90; RESP 18; TEMP 97.9; BMI 21.7
[2023-01-28] MEDS ORDERED: traMADol HCL 50 MG TABLET PO ONE (13:26)
[2023-01-28] MEDS ORDERED: traMADol HCL 50 MG TABLET ONE (13:43)
[2023-01-29] MEDS ORDERED: PIOGLITAZONE PO SCH (07:00)
[2023-01-29] MEDS ORDERED: PIOGLITAZONE HCL 45 MG PO SCH (10:00)
[2023-01-29] MEDS ORDERED: ATORVASTATIN CA 40 MG TABLET (FP) PO SCH (10:00)
[2023-01-29] MEDS ORDERED: NIFEdipine E.R 60 MG TABLET PO SCH (10:00)
[2023-01-29] MEDS ORDERED: LOSARTAN POTASSIUM 25 MG TABLET PO SCH (10:00)
[2023-01-29] MEDS ORDERED: ALLOPURINOL 100 MG TABLET (FP) PO SCH (10:00)
== END 2023-01-28 14:36 | disposition home or self-care (01) ==
LOC: JERFT 10:35
PROC: 2W3DX1Z Immobilization of Left Lower Arm using Splint (ICD-10-PCS; principal; 2023-01-28)
DX: S62.307A Unspecified fracture of fifth metacarpal bone, left hand, initial encounter for closed fracture (principal); M79.641 Pain in right hand; S69.92XA Unspecified injury of left wrist, hand and finger(s), initial encounter; W18.30XA Fall on same level, unspecified, initial encounter; Y93.01 Activity, walking, marching and hiking; Y92.828 Other wilderness area as the place of occurrence of the external cause
CPT/HCPCS: 73130-TC-LT-FY; 99283-25

== ENCOUNTER 2023-02-14 13:08 | Emergency (ER) | payer OTHER ==
[2023-02-14 13:13] VITALS: BP 169/90; PULSE 84; RESP 19; TEMP 98.6; BMI 24.4
== END 2023-02-14 14:38 | disposition home or self-care (01) ==
LOC: JERFT 13:08
DX: S62.307 Unspecified fracture of fifth metacarpal bone, left hand (principal); W19.XXXD Unspecified fall, subsequent encounter
CPT/HCPCS: 99282-25

== ENCOUNTER 2023-11-13 16:33 | Inpatient (IN) | payer OTHER ==
[2023-11-13 18:38] LABS: HEMATOCRIT 36.8 % (32.4-45.2); HEMOGLOBIN 12.1 GM/dL (10.7-15.3); MCHC 32.9 g/dl (32.0-36.0); MEAN CELL VOLUME 88.1 fl (80-96); MEAN PLT VOLUME 10.1 fl (7.5-11.1); PLATELET COUNT 114 10^3/uL (134-434); RBC 4.18 M/mm3 (3.60-5.2); RDW 14.6 % (11.6-15.6); WHITE BLOOD COUNT 10.9 K/mm3 (4.0-10.0)
[2023-11-13 18:40] LABS: INR 1.09 (0.83-1.09); PROTHROMBIN TIME (PATIENT) 12.6 SEC (9.7-13.0)
[2023-11-13 18:55] LABS: POTASSIUM 3.5 mmol/L (3.5-5.1)
[2023-11-13 18:58] LABS: CALCIUM 8.6 mg/dL (8.5-10.1)
[2023-11-13 18:59] LABS: ALBUMIN 2.7 g/dl (3.4-5.0); BLOOD UREA NITROGEN 51.9 mg/dL (7-18)
[2023-11-13 19:02] LABS: CREATININE 2.7 mg/dL (0.55-1.3)
[2023-11-13 19:03] LABS: BILIRUBIN,TOTAL 0.7 mg/dL (0.2-1); TOT PROT 6.6 g/dl (6.4-8.2)
[2023-11-13 19:55] LABS: ANISOCYTOSIS 0; MACROCYTOSIS 0
[2023-11-13] MEDS: SODIUM CHLORIDE 250 ML IV STA (22:29)
[2023-11-14] MEDS: SODIUM CHLORIDE 1,000 ML IV SCH (05:16)
[2023-11-14] MEDS: HEPARIN NA (PORCINE) 5,000 UNITS/ML 1ML VIAL SQ SCH (06:00)
[2023-11-14 07:22] LABS: BASO % 0.2 % (0-2.0); EOS % 0.8 % (0-4.5); HEMATOCRIT 35.8 % (32.4-45.2); HEMOGLOBIN 12.1 GM/dL (10.7-15.3); LYMPH % 6.3 % (8-40); MCH 29.6 pg (25.7-33.7); MCHC 33.7 g/dl (32.0-36.0); MEAN CELL VOLUME 87.8 fl (80-96); MEAN PLT VOLUME 10.5 fl (7.5-11.1); MONO % 13.7 % (3.8-10.2); PLATELET COUNT 129 10^3/uL (134-434); RBC 4.08 M/mm3 (3.60-5.2); RDW 14.7 % (11.6-15.6); WHITE BLOOD COUNT 9.2 K/mm3 (4.0-10.0)
[2023-11-14 07:36] LABS: POTASSIUM 3.3 mmol/L (3.5-5.1)
[2023-11-14 07:49] LABS: CALCIUM 8.2 mg/dL (8.5-10.1)
[2023-11-14 07:50] LABS: ALBUMIN 2.5 g/dl (3.4-5.0); BLOOD UREA NITROGEN 51.9 mg/dL (7-18); MAGNESIUM 2.1 mg/dL (1.8-2.4)
[2023-11-14 07:53] LABS: CREATININE 2.4 mg/dL (0.55-1.3); PHOSPHOROUS 3.6 mg/dL (2.5-4.9)
[2023-11-14 07:54] LABS: BILIRUBIN,TOTAL 0.6 mg/dL (0.2-1); TOT PROT 6.2 g/dl (6.4-8.2)
[2023-11-14] MEDS: INSULIN ASPART SLIDING SCALE (NOVOLOG) 1 VIAL SQ SCH (08:25)
[2023-11-14] MEDS ORDERED: POTASSIUM CHLORIDE ORAL LIQUID 20 MEQ/15 ML ONE (09:46)
[2023-11-14] MEDS: POTASSIUM CHLORIDE ORAL LIQUID 20 MEQ/15 ML PO ONE (09:50)
[2023-11-14] MEDS: ALLOPURINOL 100 MG TABLET (FP) PO SCH (09:50)
[2023-11-14] MEDS ORDERED: HEPARIN NA (PORCINE) 5,000 UNITS/ML 1ML VIAL ONE (14:07)
[2023-11-14 16:53] VITALS: BMI 25.5
[2023-11-15 07:30] LABS: HEMATOCRIT 32.1 % (32.4-45.2); HEMOGLOBIN 10.8 GM/dL (10.7-15.3); MCH 29.6 pg (25.7-33.7); MCHC 33.7 g/dl (32.0-36.0); MEAN CELL VOLUME 87.9 fl (80-96); MEAN PLT VOLUME 10.2 fl (7.5-11.1); PLATELET COUNT 115 10^3/uL (134-434); RBC 3.65 M/mm3 (3.60-5.2); RDW 15.1 % (11.6-15.6)
[2023-11-15 07:59] LABS: POTASSIUM 3.6 mmol/L (3.5-5.1)
[2023-11-15 08:05] LABS: CALCIUM 7.9 mg/dL (8.5-10.1)
[2023-11-15 08:06] LABS: ALBUMIN 2.1 g/dl (3.4-5.0); BLOOD UREA NITROGEN 45.8 mg/dL (7-18); MAGNESIUM 2.2 mg/dL (1.8-2.4)
[2023-11-15 08:09] LABS: CREATININE 1.9 mg/dL (0.55-1.3); PHOSPHOROUS 2.2 mg/dL (2.5-4.9)
[2023-11-15 08:10] LABS: BILIRUBIN,TOTAL 0.5 mg/dL (0.2-1)
[2023-11-15 08:11] LABS: TOT PROT 5.4 g/dl (6.4-8.2)
[2023-11-15] MEDS: SODIUM CHLORIDE 1,000 ML IV SCH (15:41)
[2023-11-16 07:22] LABS: MCH 29.3 pg (25.7-33.7); MCHC 33.4 g/dl (32.0-36.0); MEAN CELL VOLUME 87.7 fl (80-96); PLATELET COUNT 137 10^3/uL (134-434); RBC 3.43 M/mm3 (3.60-5.2); RDW 15.2 % (11.6-15.6); WHITE BLOOD COUNT 6.8 K/mm3 (4.0-10.0)
[2023-11-16 07:43] LABS: POTASSIUM 3.4 mmol/L (3.5-5.1)
[2023-11-16 07:49] LABS: ALBUMIN 1.9 g/dl (3.4-5.0); CALCIUM 7.3 mg/dL (8.5-10.1)
[2023-11-16 07:50] LABS: CREATININE 1.5 mg/dL (0.55-1.3); MAGNESIUM 1.9 mg/dL (1.8-2.4)
[2023-11-16 07:52] LABS: BILIRUBIN,TOTAL 0.4 mg/dL (0.2-1); TOT PROT 5.1 g/dl (6.4-8.2)
[2023-11-16 07:53] LABS: PHOSPHOROUS 1.8 mg/dL (2.5-4.9)
[2023-11-16] MEDS: NIFEdipine E.R 60 MG TABLET PO SCH (09:11)
[2023-11-16] MEDS ORDERED: INSULIN (NOVOLOG) ASPART 100 UNITS/ML 10ML VIAL ONE (10:25)
[2023-11-16] MEDS: POTASSIUM PHOSPHATE 30 MM in SODIUM CHLORIDE 500 ML IVPB ONE (11:20)
[2023-11-16] MEDS: VANCOMYCIN ORAL SOLUTION 125 MG/2.5 ML PO SCH (17:09)
[2023-11-16] MEDS ORDERED: VANCOMYCIN ORAL SOLUTION 125 MG/2.5 ML PO SCH (18:00)
[2023-11-16] MEDS: ACETAMINOPHEN 325 MG TABLET (FP) PO PRN (18:07)
[2023-11-16] MEDS ORDERED: INSULIN (LEVEMIR) 100 UNITS/ML UNITS SQ ONE (21:29)
[2023-11-17 06:19] LABS: HEMATOCRIT 31.5 % (32.4-45.2); HEMOGLOBIN 10.7 GM/dL (10.7-15.3); MCH 29.9 pg (25.7-33.7); MCHC 34.1 g/dl (32.0-36.0); MEAN CELL VOLUME 87.8 fl (80-96); MEAN PLT VOLUME 9.1 fl (7.5-11.1); PLATELET COUNT 158 10^3/uL (134-434); RBC 3.59 M/mm3 (3.60-5.2); RDW 15.3 % (11.6-15.6); WHITE BLOOD COUNT 9.6 K/mm3 (4.0-10.0)
[2023-11-17 06:29] LABS: POTASSIUM 3.5 mmol/L (3.5-5.1)
[2023-11-17 06:31] LABS: CALCIUM 7.6 mg/dL (8.5-10.1)
[2023-11-17 06:32] LABS: ALBUMIN 2.1 g/dl (3.4-5.0); BLOOD UREA NITROGEN 25.4 mg/dL (7-18); MAGNESIUM 1.5 mg/dL (1.8-2.4)
[2023-11-17 06:35] LABS: CREATININE 1.3 mg/dL (0.55-1.3); PHOSPHOROUS 2.2 mg/dL (2.5-4.9)
[2023-11-17 06:37] LABS: BILIRUBIN,TOTAL 0.4 mg/dL (0.2-1); TOT PROT 5.6 g/dl (6.4-8.2)
[2023-11-17] MEDS ORDERED: INSULIN (NOVOLOG) ASPART 100 UNITS/ML 10ML VIAL ONE ×2 (11:36→21:17)
[2023-11-17] MEDS: COLCHICINE 0.6 MG TAB PO ONE ×2 (14:17→18:17)
[2023-11-17] MEDS: MAGNESIUM SULF 50% (8.12 MEQ/2 ML-1 GM VIAL) IVPB ONE (18:17)
[2023-11-18 07:29] LABS: HEMATOCRIT 31.3 % (32.4-45.2); HEMOGLOBIN 10.4 GM/dL (10.7-15.3); MEAN CELL VOLUME 87.8 fl (80-96); MEAN PLT VOLUME 9.9 fl (7.5-11.1); PLATELET COUNT 186 10^3/uL (134-434); RBC 3.57 M/mm3 (3.60-5.2); RDW 15.1 % (11.6-15.6); WHITE BLOOD COUNT 12.8 K/mm3 (4.0-10.0)
[2023-11-18 07:54] LABS: ALBUMIN 1.9 g/dl (3.4-5.0); BLOOD UREA NITROGEN 25.7 mg/dL (7-18); CALCIUM 7.7 mg/dL (8.5-10.1); MAGNESIUM 2.3 mg/dL (1.8-2.4)
[2023-11-18 07:59] LABS: BILIRUBIN,TOTAL 0.5 mg/dL (0.2-1); CREATININE 1.4 mg/dL (0.55-1.3); PHOSPHOROUS 2.2 mg/dL (2.5-4.9); TOT PROT 5.6 g/dl (6.4-8.2)
[2023-11-18] MEDS: NAPH,MB-DB/K PH,MBDB POWDER PACKET PO ONE (09:57)
[2023-11-18] MEDS: ACETAMINOPHEN 1000 MG/100 ML BAG IVPB PRN (09:57)
[2023-11-18] MEDS ORDERED: INSULIN (NOVOLOG) ASPART 100 UNITS/ML 10ML VIAL ONE (11:14)
[2023-11-18] MEDS: SODIUM CHLORIDE 0.45% 1,000 ML IV SCH (21:38)
[2023-11-18] MEDS: INSULIN (LEVEMIR) 100 UNITS/ML UNITS SQ SCH (21:39)
[2023-11-19 07:05] LABS: POTASSIUM 3.6 mmol/L (3.5-5.1)
[2023-11-19 07:12] LABS: ALBUMIN 1.8 g/dl (3.4-5.0); MAGNESIUM 1.8 mg/dL (1.8-2.4)
[2023-11-19 07:13] LABS: BLOOD UREA NITROGEN 25.2 mg/dL (7-18); CALCIUM 7.6 mg/dL (8.5-10.1)
[2023-11-19 07:16] LABS: CREATININE 1.3 mg/dL (0.55-1.3); PHOSPHOROUS 2.5 mg/dL (2.5-4.9)
[2023-11-19 07:17] LABS: BILIRUBIN,TOTAL 0.4 mg/dL (0.2-1); TOT PROT 5.3 g/dl (6.4-8.2)
[2023-11-19 07:46] LABS: HEMATOCRIT 32.8 % (32.4-45.2); HEMOGLOBIN 10.7 GM/dL (10.7-15.3); MCH 28.9 pg (25.7-33.7); MCHC 32.7 g/dl (32.0-36.0); MEAN CELL VOLUME 88.2 fl (80-96); MEAN PLT VOLUME 9.2 fl (7.5-11.1); PLATELET COUNT 237 10^3/uL (134-434); RBC 3.71 M/mm3 (3.60-5.2); RDW 15.5 % (11.6-15.6); WHITE BLOOD COUNT 12.5 K/mm3 (4.0-10.0)
[2023-11-19] MEDS ORDERED: INSULIN (NOVOLOG) ASPART 100 UNITS/ML 10ML VIAL ONE ×3 (11:02→21:19)
[2023-11-20 06:21] LABS: HEMATOCRIT 27.7 % (32.4-45.2); MCH 28.8 pg (25.7-33.7); MCHC 32.7 g/dl (32.0-36.0); MEAN CELL VOLUME 88.2 fl (80-96); MEAN PLT VOLUME 9.2 fl (7.5-11.1); PLATELET COUNT 230 10^3/uL (134-434); RBC 3.14 M/mm3 (3.60-5.2); WHITE BLOOD COUNT 8.7 K/mm3 (4.0-10.0)
[2023-11-20 06:55] LABS: POTASSIUM 3.8 mmol/L (3.5-5.1)
[2023-11-20 07:01] LABS: CALCIUM 7.7 mg/dL (8.5-10.1)
[2023-11-20 07:02] LABS: ALBUMIN 1.6 g/dl (3.4-5.0); BLOOD UREA NITROGEN 22.7 mg/dL (7-18); MAGNESIUM 1.6 mg/dL (1.8-2.4)
[2023-11-20 07:05] LABS: CREATININE 1.2 mg/dL (0.55-1.3); PHOSPHOROUS 2.6 mg/dL (2.5-4.9)
[2023-11-20 07:06] LABS: BILIRUBIN,TOTAL 0.4 mg/dL (0.2-1); TOT PROT 4.8 g/dl (6.4-8.2)
[2023-11-20] MEDS ORDERED: INSULIN (NOVOLOG) ASPART 100 UNITS/ML 10ML VIAL ONE (21:13)
[2023-11-21 07:17] LABS: BASO % 0.7 % (0-2.0); EOS % 1.9 % (0-4.5); HEMATOCRIT 28.5 % (32.4-45.2); HEMOGLOBIN 9.4 GM/dL (10.7-15.3); LYMPH % 15.5 % (8-40); MCH 28.8 pg (25.7-33.7); MCHC 32.9 g/dl (32.0-36.0); MEAN CELL VOLUME 87.7 fl (80-96); MEAN PLT VOLUME 8.8 fl (7.5-11.1); MONO % 5.5 % (3.8-10.2); NEUT % 76.4 % (42.8-82.8); PLATELET COUNT 253 10^3/uL (134-434); RBC 3.25 M/mm3 (3.60-5.2); RDW 15.1 % (11.6-15.6); WHITE BLOOD COUNT 7.4 K/mm3 (4.0-10.0)
[2023-11-21 07:33] LABS: POTASSIUM 3.7 mmol/L (3.5-5.1)
[2023-11-21 07:35] LABS: CALCIUM 7.8 mg/dL (8.5-10.1)
[2023-11-21 07:36] LABS: ALBUMIN 1.7 g/dl (3.4-5.0); BLOOD UREA NITROGEN 20.9 mg/dL (7-18); MAGNESIUM 1.5 mg/dL (1.8-2.4)
[2023-11-21 07:39] LABS: CREATININE 1.2 mg/dL (0.55-1.3); PHOSPHOROUS 2.6 mg/dL (2.5-4.9)
[2023-11-21 07:41] LABS: BILIRUBIN,TOTAL 0.3 mg/dL (0.2-1)
[2023-11-21] MEDS: MAGNESIUM SULF 50% (8.12 MEQ/2 ML-1 GM VIAL) IVPB ONE (09:39)
[2023-11-21 15:42] VITALS: TEMP 97.9
[2023-11-21 17:45] VITALS: BP 143/62; PULSE 78; RESP 22
== END 2023-11-21 18:30 | disposition home or self-care (01) | DRG 372 ==
LOC: JER 16:33 → JERBED 11-14 00:02 → J2W 11-14 13:32 → OBSVTOIN 11-17 12:57
PROVIDERS: ADMIT Internal Medicine; ATTEND Internal Medicine
DX: A04.72 Enterocolitis due to Clostridium difficile, not specified as recurrent (principal); N17.9 Acute kidney failure, unspecified; E78.5 Hyperlipidemia, unspecified; E86.0 Dehydration; D64.9 Anemia, unspecified; I12.9 Hypertensive chronic kidney disease with stage 1 through stage 4 chronic kidney disease, or unspecified chronic kidney disease; N18.9 Chronic kidney disease, unspecified; E11.22 Type 2 diabetes mellitus with diabetic chronic kidney disease; R79.89 Other specified abnormal findings of blood chemistry; I95.89 Other hypotension; N89.8 Other specified noninflammatory disorders of vagina; R29.898 Other symptoms and signs involving the musculoskeletal system; M25.531 Pain in right wrist; M10.9 Gout, unspecified; E86.9 Volume depletion, unspecified; Z79.84 Long term (current) use of oral hypoglycemic drugs
CPT/HCPCS: 36415; 70450-TC; 71045-TC-FY; 72125-TC; 72148-TC; 72170-TC-FY; 74176-TC; 80048; 80053; 82272; 82550; 82553; 82962; 83036; 83735; 84100; 84443; 84484; 85025; 85027; 85610; 85730; 86850; 86900; 86901; 87040; 87045; 87046; 87086; 87205; 87324; 87449; 87491; 87493; 87591; 87635; 87661; 93005; 93010; 93306-TC; 94761; 97116-GP; 97161-GP; 99285-25; G0378; J0131; J1644

== ENCOUNTER 2024-08-06 06:18 | Inpatient (IN) | payer OTHER ==
[2024-08-06 07:51] LABS: EOS % 0.4 % (0-4.5); HEMATOCRIT 39.8 % (32.4-45.2); HEMOGLOBIN 13.1 GM/dL (10.7-15.3); LYMPH % 10.9 % (8-40); MCH 29.5 pg (25.7-33.7); MCHC 32.8 g/dl (32.0-36.0); MEAN CELL VOLUME 89.8 fl (80-96); MEAN PLT VOLUME 10.4 fl (7.5-11.1); MONO % 9.2 % (3.8-10.2); NEUT % 78.5 % (42.8-82.8); PLATELET COUNT 119 10^3/uL (134-434); RBC 4.43 M/mm3 (3.60-5.2); RDW 14.8 % (11.6-15.6); WHITE BLOOD COUNT 4.5 K/mm3 (4.0-10.0)
[2024-08-06 08:21] LABS: POTASSIUM 4.6 mmol/L (3.5-5.1)
[2024-08-06 08:23] LABS: ALBUMIN 3.8 g/dl (3.4-5.0); BLOOD UREA NITROGEN 51.2 mg/dL (7-18); CALCIUM 9.7 mg/dL (8.5-10.1)
[2024-08-06 08:26] LABS: CREATININE 2.2 mg/dL (0.55-1.3)
[2024-08-06 08:28] LABS: BILIRUBIN,TOTAL 0.6 mg/dL (0.2-1); TOT PROT 7.9 g/dl (6.4-8.2)
[2024-08-06 08:31] LABS: INR 0.93 (0.83-1.09); PROTHROMBIN TIME (PATIENT) 10.7 SEC (9.7-13.0)
[2024-08-06 08:34] LABS: ACTIVATED PTT 47.5 SECONDS (25.2-36.5)
[2024-08-06] MEDS: SODIUM CHLORIDE 0.9% 500 ML INFUS.BAG IV ONE (08:50)
[2024-08-06] MEDS ORDERED: NIFEdipine E.R 60 MG TABLET PO ONE (10:24)
[2024-08-06] MEDS: NIFEdipine E.R 60 MG TABLET PO SCH (10:25)
[2024-08-06] MEDS ORDERED: INSULIN ASPART SLIDING SCALE (NOVOLOG) 1 VIAL SQ ONE ×4 (11:07→12:42)
[2024-08-06] MEDS: LACTATED RINGERS SOLUTION 1,000 ML/1,000 ML INFUS.BAG IV SCH (11:23)
[2024-08-06] MEDS: INSULIN ASPART SLIDING SCALE (NOVOLOG) 1 VIAL SQ SCH (12:44)
[2024-08-06 14:13] LABS: POTASSIUM 3.9 mmol/L (3.5-5.1)
[2024-08-06 14:15] LABS: BLOOD UREA NITROGEN 48.6 mg/dL (7-18); CALCIUM 9.4 mg/dL (8.5-10.1)
[2024-08-06 14:16] LABS: ALBUMIN 3.6 g/dl (3.4-5.0)
[2024-08-06 14:18] LABS: CREATININE 2.1 mg/dL (0.55-1.3)
[2024-08-06 14:20] LABS: BILIRUBIN,TOTAL 0.5 mg/dL (0.2-1); TOT PROT 7.7 g/dl (6.4-8.2)
[2024-08-06 21:30] VITALS: BMI 24.1
[2024-08-06] MEDS: ATORVASTATIN CA 40 MG TABLET (FP) PO SCH (22:44)
[2024-08-07 01:14] VITALS: RESP 18
[2024-08-07 08:39] LABS: HEMATOCRIT 39.9 % (32.4-45.2); HEMOGLOBIN 13.1 GM/dL (10.7-15.3); MCH 29.6 pg (25.7-33.7); MCHC 32.8 g/dl (32.0-36.0); MEAN CELL VOLUME 90.3 fl (80-96); MEAN PLT VOLUME 10.8 fl (7.5-11.1); PLATELET COUNT 115 10^3/uL (134-434); RBC 4.42 M/mm3 (3.60-5.2); RDW 14.7 % (11.6-15.6); WHITE BLOOD COUNT 3.3 K/mm3 (4.0-10.0)
[2024-08-07 08:59] LABS: POTASSIUM 3.9 mmol/L (3.5-5.1)
[2024-08-07 09:01] LABS: ALBUMIN 3.2 g/dl (3.4-5.0); BLOOD UREA NITROGEN 36.1 mg/dL (7-18); CALCIUM 9.1 mg/dL (8.5-10.1); MAGNESIUM 2.2 mg/dL (1.8-2.4)
[2024-08-07 09:04] LABS: CREATININE 1.6 mg/dL (0.55-1.3)
[2024-08-07 09:05] LABS: PHOSPHOROUS 3.7 mg/dL (2.5-4.9)
[2024-08-07 09:06] LABS: BILIRUBIN,TOTAL 0.7 mg/dL (0.2-1); TOT PROT 6.9 g/dl (6.4-8.2)
[2024-08-07 12:00] LABS: PH,URINE 5.5 (5.0-8.0); URINE APPEARANCE Clear; URINE BILIRUBIN Negative (NEGATIVE); URINE COLOR Yellow; URINE GLUCOSE (UA) 3+ (NEGATIVE); URINE KETONE Negative (NEGATIVE); URINE LEUK ESTERASE Negative (NEGATIVE); URINE NITRITE Negative (NEGATIVE); URINE PROTEIN 2+ (NEGATIVE); URINE UROBILINOGEN 0.2 mg/dL (0.2-1.0)
[2024-08-07 12:32] LABS: EPI CELLS 5 /uL (0-25.1); HYALINE CASTS 0 /uL (0-3.1); URINE BACTERIA 227 /uL (0-1359); URINE RBC 11 /uL (0-23.9); URINE WBC 16 /uL (0-25.8)
[2024-08-08 06:21] VITALS: TEMP 97.9
[2024-08-08 07:47] LABS: BASO % 0.8 % (0-2.0); EOS % 1.4 % (0-4.5); HEMATOCRIT 43.3 % (32.4-45.2); HEMOGLOBIN 14.4 GM/dL (10.7-15.3); LYMPH % 33.9 % (8-40); MCH 29.8 pg (25.7-33.7); MCHC 33.3 g/dl (32.0-36.0); MEAN CELL VOLUME 89.3 fl (80-96); MONO % 9.9 % (3.8-10.2); PLATELET COUNT 129 10^3/uL (134-434); RBC 4.85 M/mm3 (3.60-5.2); WHITE BLOOD COUNT 4.8 K/mm3 (4.0-10.0)
[2024-08-08 08:07] LABS: POTASSIUM 3.9 mmol/L (3.5-5.1)
[2024-08-08 08:14] LABS: BLOOD UREA NITROGEN 32.2 mg/dL (7-18); CALCIUM 9.3 mg/dL (8.5-10.1)
[2024-08-08 08:18] LABS: CREATININE 1.6 mg/dL (0.55-1.3)
[2024-08-08 10:08] VITALS: BP 135/62; PULSE 62
== END 2024-08-08 10:00 | disposition home or self-care (01) | DRG 394 ==
LOC: JER 06:18 → JERBED 08:36 → J7W 19:30 → OBSVTOIN 08-07 12:57
PROVIDERS: ADMIT Internal Medicine
DX: K62.3 Rectal prolapse (principal); K92.1 Melena; N17.9 Acute kidney failure, unspecified; I12.9 Hypertensive chronic kidney disease with stage 1 through stage 4 chronic kidney disease, or unspecified chronic kidney disease; N18.9 Chronic kidney disease, unspecified; K64.8 Other hemorrhoids; E78.5 Hyperlipidemia, unspecified; E11.9 Type 2 diabetes mellitus without complications
CPT/HCPCS: 36415; 76775-TC; 80048; 80053; 81003; 82272; 82962; 83036; 83735; 84100; 85025; 85027; 85610; 85730; 86850; 86900; 86901; 87086; 87186; 93005; 93010; 97116-GP; 97161-GP; 99285-25; G0378

== ENCOUNTER 2024-08-23 12:25 | Inpatient (IN) | payer OTHER ==
[2024-08-23 13:56] LABS: BASO % 1.1 % (0-2.0); EOS % 1.4 % (0-4.5); HEMOGLOBIN 14.6 GM/dL (10.7-15.3); LYMPH % 15.9 % (8-40); MCH 29.4 pg (25.7-33.7); MCHC 32.3 g/dl (32.0-36.0); MEAN CELL VOLUME 90.9 fl (80-96); MEAN PLT VOLUME 10.9 fl (7.5-11.1); MONO % 4.7 % (3.8-10.2); NEUT % 76.9 % (42.8-82.8); PLATELET COUNT 162 10^3/uL (134-434); RBC 4.96 M/mm3 (3.60-5.2); RDW 14.7 % (11.6-15.6); WHITE BLOOD COUNT 5.1 K/mm3 (4.0-10.0)
[2024-08-23] MEDS: SODIUM CHLORIDE 0.9% 500 ML INFUS.BAG IV ONE ×2 (14:08→18:37)
[2024-08-23 14:13] LABS: VENOUS BASE EXCESS -0.1 mmol/L (-2-2); VENOUS O2 SATURATION 46.6 % (70-80); VENOUS PCO2 39.6 mmHg (38-52); VENOUS PH 7.408 (7.310-7.410)
[2024-08-23 14:15] LABS: CHLORIDE 93 mmol/L (98-107); POTASSIUM 5.8 mmol/L (3.5-5.1); SODIUM 127 mmol/L (136-145)
[2024-08-23 14:17] LABS: CALCIUM 9.8 mg/dL (8.5-10.1)
[2024-08-23 14:18] LABS: ALBUMIN 4.1 g/dl (3.4-5.0); ANION GAP 10 mmol/L (4-13); BLOOD UREA NITROGEN 38.6 mg/dL (7-18); CO2 24 mmol/L (21-32); MAGNESIUM 2.6 mg/dL (1.8-2.4)
[2024-08-23 14:21] LABS: CREATININE 2.3 mg/dL (0.55-1.3); PHOSPHOROUS 4.1 mg/dL (2.5-4.9); SGOT/AST 70 U/L (15-37)
[2024-08-23 14:22] LABS: BILIRUBIN,TOTAL 0.8 mg/dL (0.2-1); SGPT/ALT 94 U/L (13-61)
[2024-08-23] MEDS ORDERED: PIPERACILLIN/TAZOB 4.5 GM 4.5 GM/100 ML BAG IVPB ONE (14:22)
[2024-08-23 14:23] LABS: ALK PHOS 107 U/L (45-117)
[2024-08-23 14:24] LABS: GLUCOSE,RANDOM 540 mg/dL (74-106)
[2024-08-23] MEDS: PIPERACILLIN/TAZOB 4.5 GM 4.5 GM in DEXTROSE 5%-WATER 100 ML IVPB ONE (14:29)
[2024-08-23 14:53] LABS: URINE APPEARANCE CLEAR; URINE BILIRUBIN NEGATIVE (NEGATIVE); URINE COLOR YELLOW; URINE GLUCOSE (UA) 3+ (NEGATIVE); URINE KETONE NEGATIVE (NEGATIVE); URINE LEUK ESTERASE NEGATIVE (NEGATIVE); URINE NITRITE NEGATIVE (NEGATIVE); URINE PROTEIN 2+ (NEGATIVE); URINE UROBILINOGEN 0.2 mg/dL (0.2-1.0)
[2024-08-23 14:58] LABS: EPI CELLS 4.1 /uL (0-25.1); HYALINE CASTS 0.13 /uL (0-3.1); URINE BACTERIA 4.7 /uL (0-1359); URINE RBC 6.3 /uL (0-23.9); URINE WBC 13.5 /uL (0-25.8)
[2024-08-23] MEDS ORDERED: VANCOMYCIN 1 GM PREMIX (F) 1 GM/200 ML BAG ONE (15:42)
[2024-08-23] MEDS: VANCOMYCIN 1,000 MG in DEXTROSE 5%-WATER - 250 ML IVPB ONE (15:44)
[2024-08-23 16:00] LABS: CHLORIDE 96 mmol/L (98-107); POTASSIUM 4.7 mmol/L (3.5-5.1); SODIUM 132 mmol/L (136-145)
[2024-08-23 16:02] LABS: CALCIUM 9.5 mg/dL (8.5-10.1)
[2024-08-23 16:03] LABS: ALBUMIN 4.1 g/dl (3.4-5.0); ANION GAP 11 mmol/L (4-13); CO2 25 mmol/L (21-32)
[2024-08-23 16:06] LABS: CREATININE 2.2 mg/dL (0.55-1.3); SGOT/AST 40 U/L (15-37); SGPT/ALT 88 U/L (13-61)
[2024-08-23 16:07] LABS: BILIRUBIN,TOTAL 0.6 mg/dL (0.2-1)
[2024-08-23 16:08] LABS: TOT PROT 8.5 g/dl (6.4-8.2)
[2024-08-23 16:09] LABS: ALK PHOS 107 U/L (45-117); GLUCOSE,RANDOM 449 mg/dL (74-106)
[2024-08-23] MEDS ORDERED: INSULIN REGULAR HUMAN 100 UNITS/ML *VIAL ONE (19:29)
[2024-08-23] MEDS ORDERED: INSULIN ASPART SLIDING SCALE (NOVOLOG) 1 VIAL SQ ONE (19:29)
[2024-08-23] MEDS: INSULIN (NOVOLOG) ASPART 100 UNITS/ML 10ML VIAL SQ ONE (19:36)
[2024-08-23] MEDS: HEPARIN NA (PORCINE) 5,000 UNITS/ML 1ML VIAL SQ SCH (21:20)
[2024-08-23] MEDS: hydrALAZINE HCL 25 MG TABLET (FP) PO SCH (21:20)
[2024-08-23] MEDS: ATORVASTATIN CA 40 MG TABLET (FP) PO SCH (21:20)
[2024-08-23] MEDS: SODIUM CHLORIDE 1,000 ML IV SCH (21:20)
[2024-08-23] MEDS ORDERED: INSULIN ASPART SLIDING SCALE (NOVOLOG) 1 VIAL SQ SCH (22:00)
[2024-08-23 23:37] VITALS: BMI 20.6
[2024-08-24] MEDS: INSULIN ASPART SLIDING SCALE (NOVOLOG) 1 VIAL SQ SCH (05:31)
[2024-08-24] MEDS: NIFEdipine E.R 60 MG TABLET PO SCH ×2 (10:09→11:45)
[2024-08-24 10:14] LABS: POTASSIUM 4.5 mmol/L (3.5-5.1)
[2024-08-24 10:23] LABS: BLOOD UREA NITROGEN 28.1 mg/dL (7-18)
[2024-08-24 10:24] LABS: CREATININE 1.6 mg/dL (0.55-1.3)
[2024-08-24 10:25] LABS: BILIRUBIN,TOTAL 0.7 mg/dL (0.2-1); TOT PROT 7.3 g/dl (6.4-8.2)
[2024-08-24 10:27] LABS: ALBUMIN 3.6 g/dl (3.4-5.0); PHOSPHOROUS 4.2 mg/dL (2.5-4.9)
[2024-08-24 10:28] LABS: CALCIUM 8.7 mg/dL (8.5-10.1); MAGNESIUM 2.3 mg/dL (1.8-2.4)
[2024-08-24] MEDS: ISOSORBIDE MONONITRATE 30 MG TAB.SR.24H (FP) PO SCH (11:40)
[2024-08-24] MEDS: EMPAGLIFLOZIN (JARDIANCE) 25 MG TABLET PO SCH (12:22)
[2024-08-25] MEDS: ALLOPURINOL 100 MG TABLET (FP) PO SCH (09:14)
[2024-08-25 10:54] LABS: BASO % 0.9 % (0-2.0); EOS % 1.3 % (0-4.5); HEMOGLOBIN 13.9 GM/dL (10.7-15.3); LYMPH % 29.9 % (8-40); MCH 30.1 pg (25.7-33.7); MEAN CELL VOLUME 91.2 fl (80-96); MEAN PLT VOLUME 10.7 fl (7.5-11.1); NEUT % 59.9 % (42.8-82.8); PLATELET COUNT 138 10^3/uL (134-434); RBC 4.61 M/mm3 (3.60-5.2); RDW 15.2 % (11.6-15.6); WHITE BLOOD COUNT 4.8 K/mm3 (4.0-10.0)
[2024-08-25 11:09] LABS: POTASSIUM 3.9 mmol/L (3.5-5.1)
[2024-08-25 11:24] LABS: ALBUMIN 3.4 g/dl (3.4-5.0); BLOOD UREA NITROGEN 29.4 mg/dL (7-18); MAGNESIUM 2.1 mg/dL (1.8-2.4)
[2024-08-25 11:25] LABS: CREATININE 1.9 mg/dL (0.55-1.3)
[2024-08-25 11:27] LABS: BILIRUBIN,TOTAL 0.7 mg/dL (0.2-1); TOT PROT 7.4 g/dl (6.4-8.2)
[2024-08-25] MEDS: INSULIN ASPART SLIDING SCALE (NOVOLOG) 1 VIAL SQ SCH ×2 (16:32→22:02)
[2024-08-26 10:15] LABS: BASO % 0.8 % (0-2.0); EOS % 1.1 % (0-4.5); HEMATOCRIT 41.7 % (32.4-45.2); HEMOGLOBIN 13.6 GM/dL (10.7-15.3); LYMPH % 26.8 % (8-40); MCH 29.8 pg (25.7-33.7); MCHC 32.7 g/dl (32.0-36.0); MEAN CELL VOLUME 91.1 fl (80-96); MEAN PLT VOLUME 10.7 fl (7.5-11.1); MONO % 7.1 % (3.8-10.2); NEUT % 64.2 % (42.8-82.8); PLATELET COUNT 134 10^3/uL (134-434); RBC 4.58 M/mm3 (3.60-5.2); RDW 15.2 % (11.6-15.6); WHITE BLOOD COUNT 3.5 K/mm3 (4.0-10.0)
[2024-08-26 10:36] LABS: POTASSIUM 3.8 mmol/L (3.5-5.1)
[2024-08-26 10:38] LABS: CALCIUM 8.6 mg/dL (8.5-10.1)
[2024-08-26 10:40] LABS: ALBUMIN 3.3 g/dl (3.4-5.0); BLOOD UREA NITROGEN 33.7 mg/dL (7-18)
[2024-08-26 10:42] LABS: CREATININE 1.9 mg/dL (0.55-1.3)
[2024-08-26 10:43] LABS: BILIRUBIN,TOTAL 0.5 mg/dL (0.2-1); TOT PROT 6.7 g/dl (6.4-8.2)
[2024-08-26] MEDS: EMPAGLIFLOZIN (JARDIANCE) 10 MG TABLET PO SCH (12:00)
[2024-08-26 23:16] VITALS: PULSE 76; RESP 18
[2024-08-27 06:23] VITALS: BP 125/64; TEMP 97.7
== END 2024-08-27 12:01 | disposition home or self-care (01) | DRG 639 ==
LOC: JER 12:25 → JERBED 16:55 → UNDOADMOB 16:55 → INTOOBSV 16:55 → JERBED 17:12 → J8W 20:07 → OBSVTOIN 08-24 08:56
PROVIDERS: ADMIT Student in an Organized Health Care Education/Training Program; ATTEND Nurse Practitioner Family
DX: E11.65 Type 2 diabetes mellitus with hyperglycemia (principal); E78.5 Hyperlipidemia, unspecified; K62.3 Rectal prolapse; M10.9 Gout, unspecified; I12.9 Hypertensive chronic kidney disease with stage 1 through stage 4 chronic kidney disease, or unspecified chronic kidney disease; E11.22 Type 2 diabetes mellitus with diabetic chronic kidney disease; N18.32 Chronic kidney disease, stage 3b; R53.1 Weakness
CPT/HCPCS: 0241U-QW; 36415; 70450-TC; 71046-TC-FY; 80053; 81003; 82010; 82570; 82803; 82962; 83036; 83605; 83735; 84100; 84300; 84484; 85025; 87040; 87086; 93005; 93010; 97116-GP; 99285-25; G0378; J1644